=== PATIENT | male | born 1985 | race Caucasian/White ===

== ENCOUNTER 2019-06-01 15:07 | Emergency (ER) | payer OTHER ==
[~2019-06-01] VITALS: Ht 180.3 cm; Wt 74.8 kg
[2019-06-01] MEDS ORDERED: TDAP DIPH,PERTUSS,TET VAC/PF 0.5 ML DISP.SYRIN IM ONE ×2 (15:15→15:29)
--- NOTE | 2019-06-01 16:05 | NUR ---
Patient discharged to home in stable conditon. Written and verbal after care instructions given to [employer] officers.pt d/ricky in custody of [employer] Addendum: 06/01/19 at 1612 by MAYI pt walks in steady gait.
== END 2019-06-01 16:13 ==
LOC: ER 15:07
DX: S70.01XA Contusion of right hip, initial encounter (principal); S93.402A Sprain of unspecified ligament of left ankle, initial encounter; F15.10 Other stimulant abuse, uncomplicated; W17.89XA Other fall from one level to another, initial encounter; Y93.89 Activity, other specified; Y92.89 Other specified places as the place of occurrence of the external cause; Y99.8 Other external cause status
CPT/HCPCS: 73502; 73610; 90715; A4663